=== PATIENT | female | born 1945 | race Caucasian/White ===

== ENCOUNTER 2022-06-19 17:48 | Emergency (ER) | payer MEDICARE ==
[~2022-06-19] VITALS: Ht 152.4 cm; Wt 56.2 kg
[2022-06-19 17:56] VITALS: BP 167/71
[2022-06-19] MEDS ORDERED: ACETAMINOPHEN WITH CODEINE 1 TAB TAB PO ONE (18:30)
[2022-06-19] MEDS ORDERED: ACET-66 PO (18:38)
== END 2022-06-19 19:29 | disposition home or self-care (01) ==
LOC: EDH 17:48
DX: S52.502A Unspecified fracture of the lower end of left radius, initial encounter for closed fracture (principal); E03.9 Hypothyroidism, unspecified; Z90.89 Acquired absence of other organs; Z98.890 Other specified postprocedural states; Z90.49 Acquired absence of other specified parts of digestive tract; W19.XXXA Unspecified fall, initial encounter; Y93.89 Activity, other specified; Y92.89 Other specified places as the place of occurrence of the external cause; Y99.8 Other external cause status
CPT/HCPCS: 29125; 73090

== ENCOUNTER → 2023-11-27 | Outpatient (CLI) | payer MEDICARE ==
[~2023-11-27] MED LIST: ACET-66 PO; APIX5TAB PO
== END | disposition home or self-care (01) ==
LOC: RAH 13:26
PROVIDERS: ATTEND Family Medicine
DX: I82.431 Acute embolism and thrombosis of right popliteal vein (principal); I70.203 Unspecified atherosclerosis of native arteries of extremities, bilateral legs; M71.22 Synovial cyst of popliteal space [Baker], left knee
CPT/HCPCS: 93925; 93970

== ENCOUNTER 2023-11-29 10:30 | Emergency (ER) | payer MEDICARE ==
[~2023-11-29] VITALS: Ht 152.4 cm; Wt 45.4 kg
[~2023-11-29 10:30] MED LIST changes: -APIX5TAB PO
[2023-11-29 11:26] LABS: CREATININE 1.2 mg/dL (0.5-1.5); POTASSIUM 4.1 mmol/L (3.5-5.1)
[2023-11-29 11:27] LABS: BASOPHILS # (AUTO) 0.09 K/uL (0.00-0.20); BASOPHILS % (AUTO) 1.2 % (0.0-5.0); EOSINOPHILS # (AUTO) 0.26 K/uL (0.00-0.70); EOSINOPHILS % (AUTO) 3.4 % (0.0-8.0); HEMATOCRIT 48.1 % (36-48); IMMATURE GRANULOCYTE ABSOLUTE 0.03 K/uL (0-1); LYMPHOCYTES # (AUTO) 2.2 K/uL (1.0-4.8); MEAN CORPUSCULAR HEMOGLOBIN 30.1 pg (27.0-33.0); MEAN CORPUSCULAR HGB CONC 32.6 g/dL (32.0-36.0); MEAN CORPUSCULAR VOLUME 92.3 fL (79-99); MONOCYTES # (AUTO) 0.7 K/uL (0.1-1.0); MONOCYTES % (AUTO) 8.5 % (3.0-13.0); NEUTROPHILS # (AUTO) 4.4 K/uL (1.8-7.7); NEUTROPHILS % (AUTO) 57.5 % (40.0-77.0); PLATELET COUNT (AUTO) 478 K/uL (130-400); RED BLOOD CELL COUNT(AUTO) 5.21 MIL/uL (4.00-5.50); RED CELL DISTRIBUTION WIDTH 13.9 % (11.0-15.5); WHITE BLOOD COUNT (AUTO) 7.6 K/uL (4.8-10.8)
[2023-11-29 11:31] LABS: ALBUMIN 3.1 g/dL (3.5-5.0); BILIRUBIN,TOTAL 0.5 mg/dL (0.2-1.0); TOTAL PROTEIN, SERUM 6.8 g/dL (6.0-8.3)
[2023-11-29 11:41] LABS: INR 0.94 (0.85-1.15)
[2023-11-29 11:43] LABS: PARTIAL THROMBOPLASTIN TIME 29.4 SEC (26.3-35.5)
[2023-11-29] MEDS ORDERED: APIXABAN 2.5 MG TABLET PO ONE (14:00)
[2023-11-29] MEDS ORDERED: 0.9% NACL 500ML IV.SOLN 500 ML IV ONE (14:00)
[2023-11-29] MEDS ORDERED: IOHEXOL 350 MG/ML 100ML INFUS..BTL IV ONE (14:03)
[2023-11-29 15:17] VITALS: BP 146/80; PULSE 82; RESP 17; O2SAT 99
[2023-11-29] MEDS ORDERED: APIX5TAB PO (15:26)
== END 2023-11-29 15:37 | disposition home or self-care (01) ==
LOC: EDH 10:30
DX: I82.431 Acute embolism and thrombosis of right popliteal vein (principal); E03.9 Hypothyroidism, unspecified; Z90.89 Acquired absence of other organs; Z98.890 Other specified postprocedural states
CPT/HCPCS: 99285; 71270; 71045; 80053; 85025; 85610; 85730; 36415; 93005; J7040; Q9967

== ENCOUNTER → 2024-01-23 | Outpatient (CLI) | payer MEDICARE ==
[~2024-01-23] MED LIST changes: +APIX5TAB PO
== END | disposition home or self-care (01) ==
LOC: RAH 15:02
PROVIDERS: ATTEND Family Medicine
DX: I82.533 Chronic embolism and thrombosis of popliteal vein, bilateral (principal); M25.862 Other specified joint disorders, left knee; I82.401 Acute embolism and thrombosis of unspecified deep veins of right lower extremity
CPT/HCPCS: 93970

== ENCOUNTER 2024-02-03 12:09 | Emergency (ER) | payer MEDICARE ==
[~2024-02-03] VITALS: Ht 152.4 cm; Wt 45.4 kg
[2024-02-03 12:11] VITALS: BP 152/95; PULSE 90; RESP 20
== END 2024-02-03 14:17 | disposition home or self-care (01) ==
LOC: EDH 12:09
DX: S50.311A Abrasion of right elbow, initial encounter (principal); F07.81 Postconcussional syndrome; M79.89 Other specified soft tissue disorders; W18.39XA Other fall on same level, initial encounter; Y93.89 Activity, other specified; Y92.89 Other specified places as the place of occurrence of the external cause; Y99.8 Other external cause status
CPT/HCPCS: 70450; 72125; 73080

== ENCOUNTER → 2024-05-05 | Outpatient (CLI) | payer MEDICARE | END | disposition home or self-care (01) | LOC: RAH 13:45 | PROVIDERS: ATTEND Internal Medicine Hematology & Oncology | DX: I82.533 Chronic embolism and thrombosis of popliteal vein, bilateral (principal); M71.21 Synovial cyst of popliteal space [Baker], right knee; I82.431 Acute embolism and thrombosis of right popliteal vein | CPT/HCPCS: 93970 ==

== ENCOUNTER 2024-07-21 16:13 | Emergency (ER) | payer MEDICARE ==
[~2024-07-21] VITALS: Ht 152.4 cm; Wt 43.1 kg
[2024-07-21 16:49] LABS: HEMATOCRIT 36.8 % (36-48); MEAN CORPUSCULAR HEMOGLOBIN 29.3 pg (27.0-33.0); MEAN CORPUSCULAR HGB CONC 32.6 g/dL (32.0-36.0); MEAN CORPUSCULAR VOLUME 89.8 fL (79-99); RED BLOOD CELL COUNT(AUTO) 4.1 MIL/uL (4.00-5.50); RED CELL DISTRIBUTION WIDTH 14.5 % (11.0-15.5); WHITE BLOOD COUNT (AUTO) 10.6 K/uL (4.8-10.8)
[2024-07-21 16:58] LABS: CREATININE 1.2 mg/dL (0.5-1.0); POTASSIUM 3.9 mmol/L (3.5-5.1)
[2024-07-21 17:07] VITALS: TEMP 98.1
[2024-07-21] MEDS: 0.9%NACL 1000ML 1,000 ML IV ONE (17:12)
[2024-07-21 19:00] LABS: APPEARANCE,URINE CLEAR (CLEAR); BILIRUBIN,URINE NEGATIVE (NEGATIVE); COLOR,URINE LIGHT-YELLOW (YELLOW); GLUCOSE, URINE (UA) NEGATIVE (NEGATIVE); KETONES,URINE NEGATIVE (NEGATIVE); LEUKOCYTE ESTERASE ,URINE 25 Leu/uL (NEGATIVE); NITRATE,URINE NEGATIVE (NEGATIVE); PH,URINE 6.5 (5.0-8.0); PROTEIN,URINE NEGATIVE (NEGATIVE); UROBILINOGEN,URINE 0.2 mg/dL (0.2-1.0)
[2024-07-21 19:09] LABS: ADD UA MICROSCOPIC YES
[2024-07-21 19:11] LABS: BACTERIA,URINE RARE /HPF (None Seen); RBC,URINE 0-1 /HPF (0-1); SQUAMOUS EPITHELIAL CELL,UR FEW /HPF (0-2)
[2024-07-21] MEDS ORDERED: AMOX1TAB16 PO (19:26)
[2024-07-21] MEDS: AMOX/CLAV 875/125MG TAB PO ONE (19:35)
[2024-07-21 19:51] VITALS: BP 121/65; PULSE 75; RESP 14; O2SAT 97
== END 2024-07-21 19:53 | disposition home or self-care (01) ==
LOC: EDH 16:13
DX: N30.01 Acute cystitis with hematuria (principal); E86.0 Dehydration; R53.1 Weakness; E87.1 Hypo-osmolality and hyponatremia; R19.7 Diarrhea, unspecified; R42 Dizziness and giddiness; Z79.899 Other long term (current) drug therapy; Z90.49 Acquired absence of other specified parts of digestive tract; Z90.710 Acquired absence of both cervix and uterus
CPT/HCPCS: 99285; 96360; 70450; 71045; 84484; 80048; 85027; 87086; 81001; 36415; 93005; J7030

== ENCOUNTER → 2024-09-24 | Outpatient (CLI) | payer MEDICARE ==
[~2024-09-24] MED LIST changes: +AMOX1TAB16 PO
--- NOTE | 2024-09-24 14:11 | HMCIMG ---
US VENOUS DOPPLER BILATERAL HISTORY: Thrombosis COMPARISON: None TECHNIQUE: Bilateral lower extremity venous Doppler ultrasound study was performed. FINDINGS: The common femoral, femoral, popliteal, and posterior tibial veins are visualized. Possible partial chronic deep venous thrombosis may be present in the right popliteal vein and clinical correlation is recommended. 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 Normal flow with augmentation and compressibilities are otherwise demonstrated. The greater saphenous veins are also seen and grossly patent. IMPRESSION: 1. Possible partial chronic deep venous thrombosis may be present in the right popliteal vein and clinical correlation is recommended. 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
--- NOTE | 2024-09-24 14:13 | HMCIMG ---
US ARTERIAL BILAT LOW EXT DUPL HISTORY: Peripheral vascular disease COMPARISON: 11/27/2023 TECHNIQUE: Bilateral lower extremity arterial Doppler ultrasound study was performed. FINDINGS: Biphasic arterial waveforms are noted in the common femoral, deep femoral, superficial femoral, popliteal, posterior tibial and dorsalis pedal arteries. Possible collaterals are seen in the posterior tibial arteries bilaterally. On the right, the peak systolic velocity of the common femoral artery is 89 cm/s, the proximal femoral artery is 78 cm/s, the mid femoral artery is 74 cm/s, the distal femoral artery is 90 cm/s, the proximal popliteal artery is 95 cm/s, the distal popliteal artery is 48 cm/s, the anterior tibial artery is 74 cm/s, the posterior tibial artery artery is 30 cm/s,and the dorsalis pedal artery is 85 cm/s. On the left, the peak systolic velocity of the common femoral artery is 127 cm/s, the proximal femoral artery is 76 cm/s, the mid femoral artery is 72 cm/s, the distal femoral artery is 86 cm/s, the proximal popliteal artery is 59 cm/s, the distal popliteal artery is 46 cm/s, the anterior tibial artery is 82 cm/s, the posterior tibial artery artery is 13 cm/s,and the dorsalis pedal artery is 65 cm/s. IMPRESSION: 1. Atherosclerotic disease. 2. Biphasic arterial waveforms noted of the lower extremity artery system. Possible collaterals are noted in the posterior tibial arteries bilaterally.
== END | disposition home or self-care (01) ==
LOC: RAH 12:58
PROVIDERS: ATTEND Family Medicine
DX: M71.21 Synovial cyst of popliteal space [Baker], right knee (principal); I82.401 Acute embolism and thrombosis of unspecified deep veins of right lower extremity; I73.9 Peripheral vascular disease, unspecified; M79.605 Pain in left leg; M79.604 Pain in right leg; Z86.718 Personal history of other venous thrombosis and embolism
CPT/HCPCS: 93925; 93970